=== PATIENT | female | born 2000 | race African-American/Black ===

== ENCOUNTER 2023-10-31 07:27 | Emergency (ER) | payer SELFPAY ==
[2023-10-31 08:17] VITALS: BMI 21.2
[2023-10-31] MEDS: ACETAMINOPHEN 1000 MG/100 ML BAG IVPB ONE (08:45)
[2023-10-31] MEDS ORDERED: ACETAMINOPHEN INJECTION 100 ML IVPB ONE (09:07)
[2023-10-31 09:11] LABS: BASO % 1.3 % (0-2.0); EOS % 0.6 % (0-4.5); HEMATOCRIT 32.6 % (32.4-45.2); LYMPH % 29.5 % (8-40); MCH 21.6 pg (25.7-33.7); MCHC 30.5 g/dl (32.0-36.0); MEAN CELL VOLUME 70.7 fl (80-96); MEAN PLT VOLUME 8.9 fl (7.5-11.1); MONO % 7.1 % (3.8-10.2); NEUT % 61.5 % (42.8-82.8); PLATELET COUNT 319 10^3/uL (134-434); RBC 4.61 M/mm3 (3.60-5.2); RDW 17.1 % (11.6-15.6); WHITE BLOOD COUNT 5.7 K/mm3 (4.0-10.0)
[2023-10-31 09:17] LABS: INR 1.08 (0.83-1.09); PROTHROMBIN TIME (PATIENT) 12.5 SEC (9.7-13.0)
[2023-10-31 09:20] LABS: ACTIVATED PTT 32.3 SECONDS (25.2-36.5)
[2023-10-31 10:37] LABS: CHLORIDE 109 mmol/L (98-107); POTASSIUM 4.1 mmol/L (3.5-5.1); SODIUM 140 mmol/L (136-145)
[2023-10-31 10:38] LABS: CALCIUM 8.9 mg/dL (8.5-10.1)
[2023-10-31 10:39] LABS: ALBUMIN 3.8 g/dl (3.4-5.0); ANION GAP 4 mmol/L (4-13); BLOOD UREA NITROGEN 10.6 mg/dL (7-18); CO2 26 mmol/L (21-32); GLUCOSE,RANDOM 83 mg/dL (74-106)
[2023-10-31 10:42] LABS: CREATININE 0.7 mg/dL (0.55-1.3); SGOT/AST 20 U/L (15-37); SGPT/ALT 17 U/L (13-61)
[2023-10-31 10:43] LABS: BILIRUBIN,TOTAL 0.3 mg/dL (0.2-1); TOT PROT 7.8 g/dl (6.4-8.2)
[2023-10-31 10:45] LABS: ALK PHOS 59 U/L (45-117)
[2023-10-31 11:35] LABS: ANISOCYTOSIS 3+; MACROCYTOSIS 0
[2023-10-31 12:17] LABS: METHADONE, UR NEGATIVE (NEGATIVE); OPIATES, URI NEGATIVE (NEGATIVE); PHENCYCLIDINE,URINE NEGATIVE (NEGATIVE)
[2023-10-31 12:18] LABS: URINE AMPHETAMINES NEGATIVE (NEGATIVE); URINE BARBITURATES NEGATIVE (NEGATIVE); URINE BENZODIAZEPINES NEGATIVE (NEGATIVE)
[2023-10-31 12:24] LABS: COCAINE, UR NEGATIVE (NEGATIVE)
[2023-10-31 13:06] VITALS: BP 119/70; PULSE 73; RESP 17; TEMP 98.3
== END 2023-10-31 13:15 | disposition home or self-care (01) ==
LOC: JER 07:27
PROC: 3E033NZ Introduction of Analgesics, Hypnotics, Sedatives into Peripheral Vein, Percutaneous Approach (ICD-10-PCS; principal; 2023-10-31)
DX: M54.89 Other dorsalgia (principal); R51.9 Headache, unspecified; W00.0XXA Fall on same level due to ice and snow, initial encounter; Z20.822 Contact with and (suspected) exposure to COVID-19
CPT/HCPCS: 0241U-QW; 36415; 70450-TC; 71260-TC; 72125-TC; 72128-TC; 72131-TC; 74177-TC; 80053; 80307; 84703; 85025; 85610; 85730; 86850; 86900; 86901; 99285-25; J0131; Q9967